=== PATIENT | female | born 1935 | race Two or more races ===

== ENCOUNTER 2022-08-23 18:48 | Inpatient (IN) | payer OTHER ==
[~2022-08-23] VITALS: Ht 165.1 cm; Wt 69.9 kg
[2022-08-23] MEDS ORDERED: LEVOTHYROXINE25 MCG (20:02)
[2022-08-23] MEDS ORDERED: COZAAR25 MG (20:02)
[2022-08-24] MEDS ORDERED: PERCOCET 5-3251 EACH PO (13:44)
[2022-08-24] MEDS ORDERED: ASA325 M1 PO (13:44)
[2022-08-24] MEDS ORDERED: DUI500 PO (13:44)
[2022-08-24] MEDS ORDERED: WHEELCHAIR (13:49)
== END 2022-08-24 17:13 | disposition home or self-care (01) | DRG 494 ==
LOC: ER 18:48 → MEDI 22:29
PROVIDERS: ADMIT Internal Medicine; ATTEND Internal Medicine
PROC: 0QSH04Z Reposition Left Tibia with Internal Fixation Device, Open Approach (ICD-10-PCS; principal; 2022-08-23)
PROC: 0QUH0JZ Supplement Left Tibia with Synthetic Substitute, Open Approach (ICD-10-PCS; 2022-08-23)
DX: S82.842A Displaced bimalleolar fracture of left lower leg, initial encounter for closed fracture (principal); S93.421A Sprain of deltoid ligament of right ankle, initial encounter; Z20.822 Contact with and (suspected) exposure to COVID-19